=== PATIENT | female | born 1990 | race African-American/Black ===

== ENCOUNTER 2016-07-16 09:11 | Emergency (ER) | payer OTHER ==
[~2016-07-16] VITALS: Ht 170.2 cm; Wt 63.5 kg
[2016-07-16] MEDS ORDERED: NACL 0.9% 1,000 ML IV SCH (09:13)
[2016-07-16] MEDS ORDERED: ONDANSETRON 4 MG/2 ML VIAL IVP ONE (09:15)
[2016-07-16 09:18] VITALS: BP 143/98
--- NOTE | 2016-07-16 09:22 | NUR ---
Patient ambulated to bed 7. RN evaluating patient at bedside.
--- NOTE | 2016-07-16 09:30 | NUR ---
PT PRESENTS TO ER W/C/O SORE THROAT AND INTERMITTENT BOUTS OF DIZZINESS X 1 DAY. HX SLE, RA; DENIES N/V/D; SKIN IS PINK/WARM/DRY; AAOX4 WITH EVEN AND STEADY GAIT; LUNGS CLEAR BL; HR EVEN AND REGULAR; PT DENIES ANY FEVER, CP, SOB, OR COUGH AT THIS TIME; PATIENT STATES PAIN OF 10/10 AT THIS TIME; VSS; PATIENT POSITIONED FOR COMFORT; HOB ELEVATED; BEDRAILS UP X2; BED DOWN. ER MD MADE AWARE OF PT STATUS.
--- NOTE | 2016-07-16 10:15 | NUR ---
Dr. Drake re-evaluating patient at bedside.
[2016-07-16] MEDS ORDERED: MORPHINE SULFATE 4 MG/ML SYR IVP ONE ×2 (10:40→12:35)
[2016-07-16] MEDS ORDERED: cefTRIAXone 1,000 MG VIAL ONE (11:08)
[2016-07-16 13:00] VITALS: BP 118/74
--- NOTE | 2016-07-16 13:00 | NUR ---
Patient discharged with v/s stable. Written and verbal after care instructions given and explained. Patient alert, oriented and verbalized understanding of instructions. Ambulatory with steady gait. All questions addressed prior to discharge. ID band removed. Patient advised to follow up with PMD. Rx of TYLENOL, KEFLEX given. Patient educated on indication of medication including possible reaction and side effects. Opportunity to ask questions provided and answered.
[2016-12-09] MEDS ORDERED: ZOFRAN8 MG PO (01:05)
[2016-12-09] MEDS ORDERED: FLAGYL250 MG PO (01:05)
[2016-12-09] MEDS ORDERED: CIPRO500 M1 PO (01:06)
[2016-12-10] MEDS ORDERED: PREDNISONE10 MG PO (10:37)
== END 2016-07-16 09:12 | disposition home or self-care (01) ==
LOC: MED 09:11
DX: B34.9 Viral infection, unspecified (principal); N39.0 Urinary tract infection, site not specified; R03.0 Elevated blood-pressure reading, without diagnosis of hypertension; M32.9 Systemic lupus erythematosus, unspecified; M06.9 Rheumatoid arthritis, unspecified
CPT/HCPCS: 36415; 80053; 81001; 81025; 82150; 85025; 87040; 87086; 87186; 87804; 96361; 96365; 96375; 96376; 99284; J0696; J2270; J2405; J7030; J7060

== ENCOUNTER 2016-08-12 07:15 | Emergency (ER) | payer OTHER ==
[~2016-08-12] VITALS: Ht 170.2 cm; Wt 63.5 kg
--- NOTE | 2016-08-12 07:18 | NUR ---
Patient biba from home and placed in bed 8 by EMS.
[2016-08-12 07:24] VITALS: BP 113/68
--- NOTE | 2016-08-12 07:30 | NUR ---
26/F biba from home for evaluation of chest pain. Pt states she was seen at [facility] last night for same symptoms and states "They said there was nothing wrong but I'm still having this pain." Patient states "I went home to try and rest and I couldn't. I kept pacing." Pt c/o 10 pain, to sternum, non radiating, constant, heaviness. Pt states the pain worsenes with lying flat. Patient is AOX4, VSS.
--- NOTE | 2016-08-12 07:53 | NUR ---
Vince herrera in [facility] - 08/12/16 at 0758 by [facility] Patient being evaluated by physician at bedside.
--- NOTE | 2016-08-12 08:05 | NUR ---
Patient being evaluated by physician at bedside.
[2016-08-12] MEDS ORDERED: methylPREDNISolone SS 125 MG in WATER STERILE 2 ML IV ONE (08:10)
[2016-08-12] MEDS ORDERED: NACL 0.9% 1,000 ML IV ONE (08:15)
[2016-08-12] MEDS ORDERED: ACETAMINOPHEN EXTRA STRENGTH 500 MG TAB PO ONE (08:50)
--- NOTE | 2016-08-12 08:53 | NUR ---
Pt requesting pain medication. Dr. Alberto made aware.
--- NOTE | 2016-08-12 09:02 | NUR ---
Patient refused the Tylenol. Pt states "I need something stronger." Dr. Alberto made aware.
--- NOTE | 2016-08-12 09:03 | NUR ---
Patient provided with a warm blanket and lights dimmed for comfort. VSS. Pt is calm and relaxed at this time.
--- NOTE | 2016-08-12 09:30 | NUR ---
Patient appears to be resting comfortably in bed. Vital Signs within normal limits. Respirations even and unlabored. No new orders received at this time.
--- NOTE | 2016-08-12 09:57 | NUR ---
Patient continues to be calm and relaxed at this time. VSS.
--- NOTE | 2016-08-12 10:43 | NUR ---
Patient appears to be resting comfortably in bed. Vital Signs within normal limits. Respirations even and unlabored.
--- NOTE | 2016-08-12 11:24 | NUR ---
IV removed, catheter intact and site benign. Applied folded 4x4 gauze and tape to stop bleeding.
--- NOTE | 2016-08-12 11:30 | NUR ---
PT THANKFUL FOR THE ATTENTION AND HELP. STATED SHE WAS ABLE TO SLEEP COMFORTABLY WITHOUT PAIN, WHICH SHE HASN'T BEEN ABLE TO IN 5 DAYS DUE TO CP. DC HOME INSTRUCTIONS INITIATED, PT WILL F/U WITH HER [facility] DOC
[2016-08-12 11:32] VITALS: BP 116/78
--- NOTE | 2016-08-12 11:32 | NUR ---
Patient discharged with v/s stable. Written and verbal after care instructions given and explained. Patient alert, oriented and verbalized understanding of instructions. Ambulatory with steady gait. All questions addressed prior to discharge. ID band removed. Patient advised to follow up with PMD. Rx of MEDROL DOSEPAK given. Patient educated on indication of medication including possible reaction and side effects. Opportunity to ask questions provided and answered.
== END 2016-08-12 11:32 | disposition home or self-care (01) ==
LOC: MED 07:15
PROC: 4A02X4Z Measurement of Cardiac Electrical Activity, External Approach (ICD-10-PCS; principal; 2016-08-12)
PROC: 3E033GC Introduction of Other Therapeutic Substance into Peripheral Vein, Percutaneous Approach (ICD-10-PCS; 2016-08-12)
DX: R07.9 Chest pain, unspecified (principal); B34.9 Viral infection, unspecified
CPT/HCPCS: 36415; 87804; 93005; 96361; 96374; 99285; J2930; J7030

== ENCOUNTER 2016-08-25 11:50 | Emergency (ER) | payer OTHER ==
[~2016-08-25] VITALS: Ht 170.2 cm; Wt 62.6 kg
[2016-08-25 11:53] VITALS: BP 129/89
--- NOTE | 2016-08-25 12:45 | NUR ---
PT BIBA TO BED 3 AT THIS TIME.
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
--- NOTE | 2016-08-25 12:46 | NUR ---
Pt arrived in C-spine precautions with hard C-collar place. ED Physician notified.
--- NOTE | 2016-08-25 12:50 | NUR ---
Patient being evaluated by physician at bedside.
--- NOTE | 2016-08-25 12:51 | NUR ---
C-spine cleared by Collar and backboard removed. Moves all extremities before and after backboard removal.
[2016-08-25] MEDS ORDERED: KETOROLAC 60 MG/2 ML VIAL IM ONE (12:55)
[2016-08-25] MEDS ORDERED: CARISOPRODOL 350 MG TAB PO ONE (12:55)
--- NOTE | 2016-08-25 13:10 | NUR ---
PT TAKEN VIA WHEELCHAIR BY X-RAY PRESSURE TESTING TECHNICIAN.
--- NOTE | 2016-08-25 13:29 | NUR ---
PT RETURNED FROM X-RAY VIA WHEELCHAIR.
--- NOTE | 2016-08-25 13:30 | NUR ---
PATIENT RESTING; VSS; PATIENT POSITIONED FOR COMFORT; HOB ELEVATED; BEDRAILS UP X2; BED DOWN. ER MD MADE AWARE OF PT STATUS.
--- NOTE | 2016-08-25 14:11 | NUR ---
Patient discharged with v/s stable. Written and verbal after care instructions given and explained. Patient alert, oriented and verbalized understanding of instructions. Ambulatory with steady gait. All questions addressed prior to discharge. ID band removed. Patient advised to follow up with PMD. Rx of SOMA 350MG AND MOTRIN 600MG TABLET given. Patient educated on indication of medication including possible reaction and side effects. Opportunity to ask questions provided and answered.
[2016-08-25 14:12] VITALS: BP 121/72
== END 2016-08-25 14:11 | disposition home or self-care (01) ==
LOC: MED 11:50
DX: S16.1XXA Strain of muscle, fascia and tendon at neck level, initial encounter (principal); S29.011A Strain of muscle and tendon of front wall of thorax, initial encounter; M32.9 Systemic lupus erythematosus, unspecified; V89.2XXA Person injured in unspecified motor-vehicle accident, traffic, initial encounter; Y93.89 Activity, other specified; Y92.89 Other specified places as the place of occurrence of the external cause; Y99.8 Other external cause status; M06.9 Rheumatoid arthritis, unspecified
CPT/HCPCS: 71010; 72040; 96372; 99284; J1885

== ENCOUNTER 2016-10-24 08:47 | Emergency (ER) | payer OTHER ==
[~2016-10-24] VITALS: Ht 175.3 cm; Wt 61.2 kg
[2016-10-24 09:01] VITALS: BP 120/73
--- NOTE | 2016-10-24 09:15 | NUR ---
PT AMBULATED TO ER BED 4.
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
--- NOTE | 2016-10-24 09:42 | NUR ---
Patient being evaluated by physician at bedside.
[2016-10-24] MEDS ORDERED: methylPREDNISolone SS 125 MG in WATER STERILE 2 ML IM ONE (10:05)
[2016-10-24] MEDS ORDERED: HYDROmorphone 1 MG/ML AMP IM ONE (10:05)
--- NOTE | 2016-10-24 10:05 | NUR ---
PT DECLINES BLOOD DRAW. ERMD NOTIFIED OF PATIENT STATUS.
--- NOTE | 2016-10-24 10:31 | NUR ---
Patient discharged with v/s stable. Written and verbal after care instructions given and explained by Dr. Drake. Patient alert, oriented and verbalized understanding of instructions. Ambulatory with steady gait. All questions addressed prior to discharge. ID band removed. Patient advised to follow up with PMD. Rx of PREDNISONE 20MG AND TYLENOL WITH CODIENE #3 given. Patient educated on indication of medication including possible reaction and side effects. Opportunity to ask questions provided and answered.
[2016-10-24 10:32] VITALS: BP 118/72
[2016-12-09] MEDS ORDERED: FLAGYL250 MG PO (01:05)
[2016-12-09] MEDS ORDERED: ZOFRAN8 MG PO (01:05)
[2016-12-09] MEDS ORDERED: CIPRO500 M1 PO (01:06)
[2016-12-10] MEDS ORDERED: PREDNISONE10 MG PO (10:37)
== END 2016-10-24 10:31 | disposition home or self-care (01) ==
LOC: MED 08:47
DX: M32.19 Other organ or system involvement in systemic lupus erythematosus (principal); M79.641 Pain in right hand; M79.642 Pain in left hand; R22.33 Localized swelling, mass and lump, upper limb, bilateral
CPT/HCPCS: 96372; 99284; J1170; J2930

== ENCOUNTER 2016-12-03 12:09 | Emergency (ER) | payer OTHER ==
[~2016-12-03] VITALS: Ht 172.7 cm; Wt 56.4 kg
[2016-12-03 12:50] VITALS: BP 136/84
[2016-12-03] MEDS ORDERED: ACETAMINOPHEN EXTRA STRENGTH 500 MG TAB ONE (13:02)
[2016-12-03] MEDS ORDERED: IBUPROFEN 600 MG TAB ONE (13:04)
[2016-12-03] MEDS ORDERED: NACL 0.9% 1,000 ML IV SCH (13:31)
--- NOTE | 2016-12-03 16:00 | NUR ---
NO ANSWER IN ER LOBBY
--- NOTE | 2016-12-03 17:00 | NUR ---
NO ANSWER IN ER LOBBY
--- NOTE | 2016-12-03 17:37 | NUR ---
NO ANSWER IN ER LOBBY
== END 2016-12-03 16:00 | disposition left against medical advice (07) ==
LOC: MED 12:09
DX: M32.9 Systemic lupus erythematosus, unspecified (principal)
CPT/HCPCS: 99281; 99283

== ENCOUNTER 2016-12-08 12:56 | Inpatient (IN) | payer OTHER ==
[~2016-12-08] VITALS: Ht 172.7 cm; Wt 57.6 kg
[2016-12-08 12:56] VITALS: BP 133/86
--- NOTE | 2016-12-08 12:56 | NUR ---
Patient was BIBA at this time.
[2016-12-08] MEDS ORDERED: HYDROmorphone 1 MG/ML AMP IVP ONE ×2 (13:50→16:55)
[2016-12-08] MEDS ORDERED: ONDANSETRON 4 MG/2 ML VIAL IVP ONE (13:50)
[2016-12-08] MEDS ORDERED: NACL 0.9% 1,000 ML IV ONE ×3 (13:50→16:55)
[2016-12-08 14:13] LABS: BASOPHILS # (AUTO) 0.1 K/uL (0.00-0.22); BASOPHILS % (AUTO) 1.4 % (0.0-2.0); EOSINOPHILS # (AUTO) 0.1 K/uL (0-0.4); EOSINOPHILS % (AUTO) 1.6 % (0.0-4.0); HEMATOCRIT 32.5 % (36-48); HEMOGLOBIN 10.2 g/dL (12.0-16.0); LYMPHOCYTES # (AUTO) 0.5 K/uL (2.5-16.5); LYMPHOCYTES % (AUTO) 6.2 % (20.5-51.1); MEAN CORPUSCULAR HEMOGLOBIN 22 pg (27-31); MEAN CORPUSCULAR HGB CONC 31 g/dL (33-37); MEAN CORPUSCULAR VOLUME 69 fL (80-94); MONOCYTES # (AUTO) 0.2 K/uL (0.8-1.0); MONOCYTES % (AUTO) 2.4 % (1.7-9.3); NEUTROPHILS # (AUTO) 6.7 K/uL (1.8-7.7); NEUTROPHILS % (AUTO) 88.4 % (42.2-75.2); PLATELET COUNT (AUTO) 359 K/uL (140-450); RED BLOOD CELL COUNT(AUTO) 4.71 MIL/uL (4.20-5.40); RED CELL DISTRIBUTION WIDTH 17.4 % (11.6-13.7); WHITE BLOOD COUNT (AUTO) 7.6 K/uL (4.8-10.8)
--- NOTE | 2016-12-08 14:17 | NUR ---
bed 04
--- NOTE | 2016-12-08 14:17 | NUR ---
Patient taken to bed 03 via gurney per EMS.
--- NOTE | 2016-12-08 14:18 | NUR ---
26F BIBA FROM HOME C/O ALTERED MENTAL STATUS X TODAY; PT AWAKE, ALERT ON ARRIVAL, BUT ANSWERING QUESTIONS UNAPPROPRIATELY AT THIS TIME; PT STATES " I WANT MY MOMMY" WHEN ASKED QUESTIONS. HX: LUPUS PER [facility]. SKIN IS PINK/WARM/DRY;PT AMB UNSTEADY GAIT WITH ASSISTANCE; LUNGS CLEAR BL; HR EVEN AND REGULAR; PT'S DENIES PT HAS ANY FEVER, CP, SOB, OR COUGH AT THIS TIME;PER ; PT HAS DX BACTERIAL DIAEEHEA & GOT MEDS ; ONDANSETRON ODT, METRONIDASONE &CIPRO X 2 DAYS AGO FROM [facility] BUT DOESN'T HELP. PATIENT POSITIONED FOR COMFORT; HOB ELEVATED; BEDRAILS UP X2; BED DOWN. ER MD MADE AWARE OF PT STATUS.
[2016-12-08 14:21] LABS: ANION GAP 18.6 (8-16); CALCIUM 8.7 mg/dL (8.5-10.1); CARBON DIOXIDE 23.7 mmol/L (21-32); CHLORIDE 104 mmol/L (98-107); CREATININE 0.8 mg/dL (0.6-1.3); GFR ARICAN-AMERICAN 110 mL/min (>90); GFR NON ARICAN-AMERICAN 91 mL/min (>90); GLUCOSE 115 mg/dL (74-106); POTASSIUM 3.3 mmol/L (3.5-5.1); SODIUM SERUM 143 mmol/L (136-145); UREA NITROGEN, BLOOD 13 mg/dL (7-18)
[2016-12-08 14:27] LABS: ALANINE AMINOTRANSFERASE 32 U/L (14-59); ALBUMIN 2.7 g/dL (3.4-5.0); ALKALINE PHOSPHATASE 53 U/L (46-116); ASPARTATE AMINOTRANSFERASE 39 U/L (15-37); TOTAL BILIRUBIN 0.5 mg/dL (0.0-1.0); TOTAL PROTEIN, SERUM 7.8 g/dL (6.4-8.2)
[2016-12-08 14:33] LABS: SALICYLATE < 2.8 mg/dL (2.8-20.0)
[2016-12-08 14:34] LABS: ALCOHOL, BLOOD < 3 mg/dL (<3)
[2016-12-08 14:36] LABS: LACTIC ACID 2.6 mmol/L (0.4-2.0)
--- NOTE | 2016-12-08 14:49 | NUR ---
AT BEDSIDE. Addendum: 12/08/16 at 1451 by MED1 Patient appears to be SLEEPING comfortably in bed. Vital Signs within normal limits. Respirations even and unlabored.WILL CONTINUE TO MONITOR.
--- NOTE | 2016-12-08 15:40 | NUR ---
PER DR OROZCO TO STRAIT CATH; NO URINE ' PT'S STS PT HAVEN'T DRINK WATER FOR 2 DAYS. NOTIFIED GISSELL GARCIA. Addendum: 12/08/16 at 1611 by [facility] WAIT 10 MINS ; GOT URINE FROM CATH ; SENT URINE SPECIMEN TO LAB.
--- NOTE | 2016-12-08 15:55 | NUR ---
K 3.3, LACTIC ACID 2.6. NOTIFIED ER MD DR RAGSDALE.
--- NOTE | 2016-12-08 16:09 | NUR ---
0.9% NS 1,000 ML BOLUS ORDERED PER ER MD DR. RAGSDALE VERBAL ORDER.
--- NOTE | 2016-12-08 16:12 | NUR ---
Patient appears to be SLEEPING comfortably in bed. BP 150/89 ,66, PULSE OX 100 %, Respirations even and unlabored.
[2016-12-08 16:28] LABS: BLOOD, URINE NEGATIVE (NEGATIVE); COLOR,URINE YELLOW (YELLOW); LEUKOCYTE ESTERASE ,URINE NEGATIVE (NEGATIVE); NITRITE, URINE NEGATIVE (NEGATIVE); PH,URINE 6.5 (5.0-9.0); PROTEIN,URINE NEGATIVE (NEGATIVE); UGLUCOSE NEGATIVE (NEGATIVE); UROBILINOGEN,URINE 0.2 EU/dL (0.2 - 1)
[2016-12-08 16:32] LABS: APPEARANCE,URINE HAZY (CLEAR); BILIRUBIN,URINE NEGATIVE (NEGATIVE)
[2016-12-08 16:37] LABS: BACTERIA,URINE FEW /HPF (None Seen); MUCUS,URINE 2+ /LPF (None Seen); RBC,URINE 0-3 /HPF (0-5); WBC,URINE 0-3 /HPF (0-5)
[2016-12-08 16:38] LABS: URINE AMORPHOUS URATE 2+ /HPF (None Seen)
[2016-12-08 16:41] LABS: AMPHETAMINE, URINE NEG. ng/ml (NEG <=1000); BARBITURATE, URINE NEG. ng/ml (NEG <=200); BENZODIAZEPINE, URINE NEG. ng/mL (NEG <=200); CANNABINOID, URINE POS. ng/mL (NEG <=50); COCAINE, URINE NEG. ng/mL (NEG <=300); OPIATE, URINE NEG. ng/mL (NEG <=2000); PHENCYCLIDINE SCREEN,URINE NEG. ng/mL (NEG <=25)
--- NOTE | 2016-12-08 16:47 | NUR ---
GISSELL RAGSDALE EVALUATING PT AT BEDSIDE. Addendum: 12/08/16 at 1706 by [email or web address] PT APPEARS AGIATED.
--- NOTE | 2016-12-08 17:00 | NUR ---
ADMINISTERED IVF & MED ORDER.
--- NOTE | 2016-12-08 17:02 | NUR ---
LAB at bedside.
--- NOTE | 2016-12-08 17:04 | NUR ---
Vince herrera in [facility] - 12/08/16 at 1705 by [email or web address] LAB AT BEDSIDE
[2016-12-08] MEDS ORDERED: HALOPERIDOL IM 5 MG/ML VIAL IVP ONE (17:05)
--- NOTE | 2016-12-08 17:10 | NUR ---
LACTIC ACID 3.2 H; NOTIFIED ER MD DR RAGSDALE.
--- NOTE | 2016-12-08 17:11 | NUR ---
PT APPEARS AGIATATED. GAVE HALDOL 5MG IV ORDER.
--- NOTE | 2016-12-08 17:35 | NUR ---
Patient appears to be sleeping comfortably in bed. bp 135/107,pulse ox 100&%; aware. Respirations even and unlabored.WILL CONTINUE TO MONITOR. Addendum: 12/08/16 at 1808 by [email or web address] T100.4, NOTIFIED ER MD DR RAGSDALE. GAVE TYLENOL 650 MG SUPPO ODER
[2016-12-08] MEDS ORDERED: ACETAMINOPHEN 650 MG SUPP RC ONE ×2 (17:50→17:55)
[2016-12-08] MEDS ORDERED: MEROPENEM 1,000 MG in NACL 0.9% 100 ML IV ONE (17:50)
[2016-12-08] MEDS ORDERED: MEROPENEM 1,000 MG VIAL IV ONE (18:01)
--- NOTE | 2016-12-08 18:06 | NUR ---
Patient appears to be SLEEPING comfortably in bed. T 99.9,P60,PULSE OX100,BP131,89. MD AWARE. Respirations even and unlabored.WILL CONTINUE TO MONITOR.
--- NOTE | 2016-12-08 18:20 | NUR ---
ER MD DR RAGSDALE REEVALUATING PT AT BEDSIDE.
--- NOTE | 2016-12-08 18:54 | NUR ---
IVF FINISHED,T101, PT AQPPEARS AGIATED, SCREEMING " LEAVE ME ALONE". AT BEDSIDE.T 101.6, P60,R 20 BP144/70. PULSE OX 99. NOTIFIED ER MD DR RAGSDALE.
--- NOTE | 2016-12-08 19:10 | NUR ---
Vince herrera in ED - 12/08/16 at 1915 by [email or web address] PT TAKEN TO CT VIA NED ACCOMPANIED BY TRAILHEAD CONSTRUCTION WORKER.
--- NOTE | 2016-12-08 19:12 | NUR ---
Patient taken to CT via robert holman.
--- NOTE | 2016-12-08 19:14 | NUR ---
GAVE REPORT TO AMINAH WANG. Addendum: 12/08/16 at 1915 by [email or web address] Pt report given to AMINAH WANG . Transfer of care at this time.
--- NOTE | 2016-12-08 19:35 | NUR ---
PT BACK FROM CT TEMP TAKEN 100.8/TA PT EYES CLOSE REFUSED TO BE CHECKED AND YELLING WHEN TOUCH, BOYFRIEND AT BEDSIDE, WET WASH CLOTH APPLIED ON FOREHEAD, NOTED DRYNESS ON LIPS AND DRY RASH ON LEFT UPPER ARM, SKIN WARM TO TOUCH RESP. EVEN AND UNLABORED, VITAL SIGN OBTAINED,
[2016-12-08] MEDS ORDERED: LORazepam 2 MG/ML VIAL IVP ONE (20:40)
--- NOTE | 2016-12-08 20:51 | NUR ---
PT VERY CONFUSED TRYING TO GET UP SCREAMING, PUT BACK TO BED, WET WASH CLOT APPLIED, AND INFORMED DR. TAYLOR LATEST TEMP.
[2016-12-08] MEDS ORDERED: KETOROLAC 30 MG/ML VIAL IVP ONE (20:55)
--- NOTE | 2016-12-08 21:13 | NUR ---
PT SLEEPING AT THIS TIME, BOYFRIEND AT BEDSIDE, VITAL SIGN STABLE
--- NOTE | 2016-12-08 21:20 | NUR ---
DR. TAYLOR AT BEDSIDE
--- NOTE | 2016-12-08 21:51 | NUR ---
PT EYES CLOSE, PT SLEEPING, NO SOB NOTED, VITAL SIGN STABLE,WET WASH CLOTH ON FOREHEAD
--- NOTE | 2016-12-08 22:31 | NUR ---
PT STILL SLEEPING WHEN TRY TO WAKE UP PT , PT MOVED HER SHOULDER,VITAL SIGN STABLE
--- NOTE | 2016-12-08 23:00 | NUR ---
PT STILL SLEEPING ABLE TO TURN FROM SIDE TO SIDE
--- NOTE | 2016-12-08 23:08 | NUR ---
TRIED TO PUT WET WASH CLOTH ON FOREHEAD, TEMP 101.5/TEMPORAL,PT GET MAD AND SAID LEAVE ME ALONE AND THROW THE WASH CLOTH ON THE FLOOR
--- NOTE | 2016-12-09 00:06 | NUR ---
PT STILL SLEEPING ABLE TO TURN FROM SIDE TO SIDE
--- NOTE | 2016-12-09 00:09 | NUR ---
INFORMED MD PT NO URINE OUTPUT AT THIS TIME, ABDOMEN SOFT NON DISTENDED
[2016-12-09] MEDS: NACL 0.9% 1,000 ML IV SCH ×3 (00:22→21:59)
[2016-12-09] MEDS ORDERED: MORPHINE SULFATE 2 MG/ML SYR IVP PRN (00:25)
[2016-12-09] MEDS ORDERED: LORazepam 0.5 MG TAB PO PRN ×2 (00:25→04:25)
[2016-12-09] MEDS ORDERED: DOCUSATE SODIUM 100 MG GELCAP PO PRN (00:25)
[2016-12-09] MEDS ORDERED: ONDANSETRON 4 MG/2 ML VIAL IM/IVP PRN (00:25)
[2016-12-09] MEDS ORDERED: ACETAMINOPHEN 325 MG TAB PO PRN (00:25)
--- NOTE | 2016-12-09 00:34 | NUR ---
PT AWAKE,BOYFRIEND AT BEDSIDE, GLASS OF WATER GIVEN
--- NOTE | 2016-12-09 00:43 | NUR ---
TRY TO CHECK PUPIL, PT REFUSED TO BE CHECK,BOYFRIEND AT BEDSIDE
--- NOTE | 2016-12-09 00:54 | NUR ---
LAB AT BEDSIDE
[2016-12-09] MEDS ORDERED: METR250T2 PO (01:05)
[2016-12-09] MEDS ORDERED: ONDA8TAB PO (01:05)
[2016-12-09] MEDS ORDERED: CIPR500T4 PO (01:06)
--- NOTE | 2016-12-09 01:06 | NUR ---
Pt report given to SCOOBY. Transfer of care at this time. Addendum: 12/09/16 at 0434 by [email or web address] Patient will be admitted to care of DR. SNEED. Admited to TELE. Will go to room 124B. Belongings list completed. Report to SCOOBY
--- NOTE | 2016-12-09 01:18 | NUR ---
TRANFER TO TELE PT EYES CLOSE, SLEEPY, REFUSED TO ANSWER QUESTION CLAIMED I DONT FEEL GOOD, WET WASH CLOTH ON FOREHEAD, THIS TIME PT DIDNT REMOVE WASH CLOTH.
[2016-12-09 01:24] LABS: INR 1.3 (0.8-1.2); PARTIAL THROMBOPLASTIN TIME 30.2 secs (22-35.6); PROTHROMBIN TIME 13.1 secs (10.8-13.4)
[2016-12-09 01:30] VITALS: BP 125/74
[2016-12-09 01:30] LABS: CHOL/HDL RATIO 6.6 (1-4.5); FREE T4 (FREE THYROXINE) 1.2 ng/dL (0.76-1.46); MAGNESIUM 1.7 mg/dL (1.8-2.4); PHOSPHORUS 3.5 mg/dL (2.5-4.9); THYROID STIMULATING HORMONE 1.64 uIU/mL (0.34-3.74)
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
--- NOTE | 2016-12-09 02:20 | NUR ---
PATIENT REFUSED IV FLUIDS, IS AWARE.
[2016-12-09] MEDS ORDERED: HALOPERIDOL IM 5 MG/ML VIAL IM ONE (04:00)
--- NOTE | 2016-12-09 04:10 | NUR ---
PATIENT ASLEEP IN BED, BOYFRIEND IS AT BEDSIDE. PATIENT REFUSED VITAL SIGNS. NO S/S OF ACUTE DISTRESS NOTED, CALL LIGHT WITHIN REACH, SAFETY MEASURE ENSURED, WILL CONTINUE TO MONITOR.
[2016-12-09] MEDS ORDERED: HALOPERIDOL IM 5 MG/ML VIAL IM PRN (04:25)
[2016-12-09] MEDS ORDERED: APAP/BUTAL/CAFF 325/50/40 MG 1 TAB PO PRN (04:30)
[2016-12-09] MEDS ORDERED: KETOROLAC 30 MG/ML VIAL IVP PRN (04:30)
--- NOTE | 2016-12-09 05:03 | NUR ---
PATIENT REQUESTED WATER. AFTER DRANK 2 CUPS OF WATER, PATIENT THREW UP. PATIENT IS RESTING IN BED, WILL CONTINUE TO MONITOR.
--- NOTE | 2016-12-09 06:30 | NUR ---
PATIENT WAS FOUND IN OTHER PATIENT'S ROOM AND URINATED ON HERSELF. ASSISTED PATIENT BACK TO HER ROOM. PATIENT IS RESTING IN BED NOW, BOYFRIEND IS AT BEDSIDE. SAFETY MEASURE ENSURED, WILL CONTINUE TO MONITOR.
--- NOTE | 2016-12-09 06:45 | NUR ---
TALKED WITH PATIENT'S MOTHER SOLOMON BEASLEY OVER THE PHONE, AND PATIENT'S MOTHER STATED SHE WOULD COME TO THE HOSPITAL TO SIGN ALL THE PAPER WORKS AROUND 8AM. WILL ENDORSE PLAN OF CARE TO DAY RN.
--- NOTE | 2016-12-09 07:15 | NUR ---
ENDORSED PLAN OF CARE TO DAY RN. PATIENT IS RESTING IN BED AND IN STABLE CONDITION.
--- NOTE | 2016-12-09 07:16 | NUR ---
RECEIVED REPORT FROM THE SMALL BATTERY PLATE ASSEMBLER NURSE AT BEDSIDE. PT SLEEPING. BOYFRIEND IS SLEEPING IN THE CHAIR. PER SMALL BATTERY PLATE ASSEMBLER NURSE, SHE HAS BEEN COMBATIVE AND AGITATED SINCE ARRIVAL. I WILL BE BACK AND ASSESS PT.
--- NOTE | 2016-12-09 07:55 | NUR ---
GOT HER A BLANKET. SHE WAS SHIVERING. PT ALLOWED ME TO DO V/S. SHE HAS A FEVER. WILL GET HER SOME TYLENOL WITH MORNING MEDS. REFUSED AN ORAL THERMOMETER. SKIN INTACT. L AC 20G SL. BOYFRIEND WILL BE WILLING TO ASSIST IN HER COMPLIANCE. WILL CONTINUE TO MONITOR PT.
[2016-12-09 08:00] VITALS: BP 117/75
--- NOTE | 2016-12-09 08:10 | NUR ---
SHE IS OFF THE TELE MONITOR. PT REFUSED TO BE PUT BACK ON THE MONITOR. NOTIFIED ALIZE AND .
[2016-12-09] MEDS ORDERED: CIPROFLOXACIN HCL 500 MG PO SCH (09:00)
[2016-12-09] MEDS ORDERED: MAGNESIUM OXIDE 400 MG TAB PO ONE (09:00)
[2016-12-09] MEDS ORDERED: metroNIDAZOLE 250 MG TAB PO SCH (09:00)
[2016-12-09] MEDS ORDERED: CIPROFLOXACIN 250 MG TAB PO SCH ×2 (09:08→21:00)
--- NOTE | 2016-12-09 09:20 | NUR ---
PATIENT HAS BEEN SCREENED AND CATEGORIZED MODERATE NUTRITION RISK. PATIENT WILL BE SEEN WITHIN 3-5 DAYS OF ADMISSION. 12/11/16-12/13/[address]
[2016-12-09] MEDS ORDERED: KCL 20 MEQ/WATER INJ PREMIX 200 ML IV ONE (09:50)
[2016-12-09] MEDS ORDERED: methylPREDNISolone SS 125 MG/2 ML VIAL IVP SCH (09:54)
[2016-12-09] MEDS ORDERED: LEVOFLOXACIN 250 MG/D5 PREMIX 50 ML IV ONE (10:00)
[2016-12-09] MEDS: LEVOFLOXACIN 250 MG/D5 PREMIX 50 ML IV SCH (10:35)
--- NOTE | 2016-12-09 10:42 | NUR ---
U/S TECH HERE DOING THE ECHO. MOM IS HERE AND IS ASSISTING. PT IS COOPERATIVE. STARTED THE KRIDER, STOPPED IT, STARTED THE LEVAQUIN. WILL RESTART K RIDER ONCE LEVAQUIN IS DONE. WILL CONTINUE TO MONITOR PT.
[2016-12-09] MEDS ORDERED: COMMUNICATION ORDER MC PRN (11:15)
[2016-12-09] MEDS ORDERED: MAG SULF 2000 MG/WATER PREMIX 50 ML IV SCH (11:30)
--- NOTE | 2016-12-09 11:38 | NUR ---
FAXED INITIAL REVIEW TO [facility] [phone] PHONE SVEN [phone] [id number]
[2016-12-09 12:00] VITALS: BP 99/55
[2016-12-09] MEDS: metroNIDAZOLE 500 MG/NS PREMIX 100 ML IV SCH ×2 (13:21→20:32)
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
[2016-12-09] MEDS ORDERED: POTASSIUM CHLORIDE 20 MEQ, LIDOCAINE 1% 25 MG in NACL 0.9% 250 ML IV SCH (16:00)
[2016-12-09 16:24] LABS: ANION GAP 13.2 (8-16); CALCIUM 8.1 mg/dL (8.5-10.1); CREATININE 0.7 mg/dL (0.6-1.3); POTASSIUM 3.2 mmol/L (3.5-5.1)
[2016-12-09 16:31] VITALS: BP 109/68
--- NOTE | 2016-12-09 17:24 | NUR ---
PT IS SLEEPING SOUNDLY. NO SIGNS OF DISTRESS. MAG RIDER INFUSING. PT TOLERATING WELL. MOM WENT HOME. BOYFRIEND WENT TO THE CAR. WILL BE BACK. WILL CONTINUE TO MONITOR PT.
--- NOTE | 2016-12-09 19:12 | NUR ---
ENDORSED PT TO THE AVIATION PROGRAM MANAGER NURSE AT BEDSIDE FOR CONTINUITY OF CARE. PT SLEEPING. ADMINISTER THE LAST POTASSIUM. PT TOLERATING WELL. BOYFRIEND AT BEDSIDE. IN STABLE CONDITION.
--- NOTE | 2016-12-09 19:13 | NUR ---
RECEIVED REPORTS FROM DAY RN. PATIENT ASLEEP IN BED, BOYFRIEND AT BEDSIDE. NO S/S OF ACUTE DISTRESS NOTED, IV PATENT AND INTACT, POTASSIUM CHLORIDE INFUSING AT 65ML/HR. CALL LIGHT WITHIN REACH, SAFETY MEASURE ENSURED, WILL CONTINUE THE PLAN OF CARE.
[2016-12-09 20:00] VITALS: BP 128/71
--- NOTE | 2016-12-09 20:30 | NUR ---
PATIENT ASLEEP IN BED, BOYFRIEND AT BEDSIDE. NO S/S OF ACUTE DISTRESS NOTED, RESPIRATION EVEN AND UNLABORED. CALL LIGHT WITHIN REACH, SAFETY MEASURE ENSURED, WILL CONTINUE TO MONITOR.
[2016-12-09] MEDS: methylPREDNISolone SS 125 MG/2 ML VIAL IVP SCH (20:32)
--- NOTE | 2016-12-09 23:40 | NUR ---
PATIENT AWAKE, ALERT, ORIENTED X4. STATED," I FEEL MUCH BETTER." FAMILY MEMBERS AND FRIENDS AT BEDSIDE. ASSESSED PATIENT'S NEUROLOGICAL FUNCTIONS, PATIENT WAS COOPERATIVE AND ANSWERED QUESTIONS PROPERLY. CALL LIGHT WITHIN REACH, SAFETY MEASURE ENSURED, WILL CONTINUE TO MONITOR
[2016-12-10] VITALS: BP 120/78
--- NOTE | 2016-12-10 02:34 | NUR ---
ASSISTED PATIENT TO THE BATHROOM. NOTED PATIENT AMBULATED WITH STEADY GAIT. NO S/S OF ACUTE DISTRESS NOTED, SAFETY MEASURE ENSURED, WILL CONTINUE TO MONITOR.
[2016-12-10 04:00] VITALS: BP 111/74
--- NOTE | 2016-12-10 04:33 | NUR ---
PATIENT ASLEEP IN BED, NO S/S OF ACUTE DISTRESS NOTED, RESPIRATION EVEN AND UNLABORED, VITAL SIGNS TAKEN, WITHIN NORMAL RANGE. SAFETY MEASURE ENSURED, WILL CONTINUE TO MONITOR.
[2016-12-10] MEDS: metroNIDAZOLE 500 MG/NS PREMIX 100 ML IV SCH ×3 (05:03→20:10)
[2016-12-10] MEDS: HYDROcodone/APAP 7.5/325 MG 1 TAB PO PRN ×3 (05:12→23:21)
--- NOTE | 2016-12-10 06:00 | NUR ---
UNABLE TO COLLECT THE C-DIFF, PATIENT DID NOT HAVE ANY BM DURING THE SHIFT. WILL ENDORSE TO NEXT SHIFT.
--- NOTE | 2016-12-10 06:36 | NUR ---
PATIENT ASLEEP IN BED, BOYFRIEND AT BEDSIDE. NO S/S OF ACUTE DISTRESS NOTED, RESPIRATION EVEN AND UNLABORED, SAFETY MEASURE ENSURED, WILL CONTINUE TO MONITOR.
[2016-12-10 07:09] LABS: ANION GAP 10.2 (8-16); CALCIUM 8.1 mg/dL (8.5-10.1); CARBON DIOXIDE 27.2 mmol/L (21-32); CREATININE 0.6 mg/dL (0.6-1.3); POTASSIUM 3.4 mmol/L (3.5-5.1)
--- NOTE | 2016-12-10 07:35 | NUR ---
ENDORSED PLAN OF CARE TO DAY RN. PATIENT IS IN STABLE CONDITION
--- NOTE | 2016-12-10 07:36 | NUR ---
RECEIVED REPORT FROM THE PINKED EDGE SEWING MACHINE OPERATOR NURSE AT BEDSIDE FOR CONTINUITY OF CARE. PT IS AWAKE AND ORIENTED. BOYFRIEND AT BEDSIDE. PT EATING BREAKFAST. STATED THAT THE DRS SAID SHE CAN GO HOME TODAY. EXCITED. PT HAS NOT VOMITED OR HAD AN EPISODE OF DIARRHEA SINCE YESTERDAY. TOLERATING WELL TO CLEAR LIQ DIET. V/S WITHIN NORMAL. IV ON L AC 20G, NS AT 100ML. WILL CONTINUE TO MONITOR PT.
[2016-12-10] MEDS: NACL 0.9% 1,000 ML IV SCH ×2 (07:59→17:29)
[2016-12-10 08:00] VITALS: BP 128/81
[2016-12-10] MEDS: LEVOFLOXACIN 250 MG/D5 PREMIX 50 ML IV SCH (08:23)
[2016-12-10] MEDS: methylPREDNISolone SS 125 MG/2 ML VIAL IVP SCH ×2 (08:23→20:09)
--- NOTE | 2016-12-10 08:25 | NUR ---
ADMINISTERED MORNING MEDS. PT TOLERATED WELL. WONDERING WHEN SHE WILL BE DC'D. WAITING ON
[2016-12-10 09:48] LABS: T4 (THYROXINE) 5.8 ug/dL (4.5 - 12.0)
[2016-12-10] MEDS ORDERED: PRED10TA5 PO (10:37)
--- NOTE | 2016-12-10 10:51 | NUR ---
PT RESTING IN BED. BOYFRIEND AT BEDSIDE. ANXIOUS TO GET HOME. NO ORDERS OF DC YET. WAITING ON DR. NO COMPLAINTS AT THIS TIME. WILL CONTINUE TO MONITOR PT.
[2016-12-10 12:00] VITALS: BP 125/77
--- NOTE | 2016-12-10 12:13 | NUR ---
PT JUST FINISHED TAKING A SHOWER. PT IV GOT DISLODGED. REMOVED OLD IV AND WILL START A NEW ONE ONCE SHE IS DONE WITH LUNCH. REPLACED TELE MONITOR. CALLED DR. RENAE AND ASKED HIM TO INCREASE DIET. BROUGHT HER A SANDWICH FOR NOW. HAD BM TODAY, FORMED AND SOFT. NO MORE NAUSEA OR DIARRHEA. WILL CONTINUE TO MONITOR PT.
--- NOTE | 2016-12-10 15:34 | NUR ---
PT IV GOT DISCONNECTED ACCIDENTALLY AND WAS BLEEDING ONTO HER SHEETS. PT CALLED. RECONNECTED HER, CHANGED LINENS AND CLEANED PT UP. PT TOLERATED WELL. WILL CONTINUE TO MONITOR PT.
[2016-12-10 16:00] VITALS: BP 115/74
[2016-12-10] MEDS ORDERED: POTASSIUM CHLORIDE 20% 40 MEQ/15 ML UDC PO SCH (16:15)
--- NOTE | 2016-12-10 18:00 | NUR ---
PT EATING DINNER. BOYFRIEND AT BEDSIDE. NO COMPLAINTS AT THIS TIME. WILL CONTINUE TO MONITOR PT.
--- NOTE | 2016-12-10 19:25 | NUR ---
ENDORSED PT TO THE BIOLOGICAL INSPECTOR NURSE AT BEDSIDE FOR CONTINUITY OF CARE. PT IS IN STABLE CONDITION. BOYFRIEND AT BEDSIDE.
--- NOTE | 2016-12-10 19:30 | NUR ---
RECEIVED REPORTS FROM DAY RN. PATIENT RESTING IN BED AND WATCHING TV. PATIENT AWAKE ALERT, ORIENTED X4. NO S/S OF ACUTE DISTRESS NOTED. IV PATENT AND INTACT, INFUSING NORMAL SALINE AT 100ML/HR. PATIENT STATED SHE MADE BM TODAY, AND BM WAS FORMED. PLAN OF CARE DISCUSSED, VERBALIZED UNDERSTANDING, CALL LIGHT WITHIN REACH, SAFETY MEASURE ENSURED, WILL CONTINUE TO MONITOR.
--- NOTE | 2016-12-10 22:30 | NUR ---
PATIENT RESTING IN BED, FAMILY MEMBERS AT BEDSIDE. NO S/S OF ACUTE DISTRESS NOTED, CALL LIGHT WITHIN REACH, SAFETY MEASURE ENSURED, WILL CONTINUE TO MONITOR
[2016-12-11] VITALS: BP 119/81
--- NOTE | 2016-12-11 02:39 | NUR ---
ASSISTED PATIENT TO THE BATHROOM. PATIENT RESTING IN BED NOW, CALL LIGHT WITHIN REACH, SAFETY MEASURE ENSURED, WILL CONTINUE TO MONITOR.
--- NOTE | 2016-12-11 03:36 | NUR ---
PATIENT ASLEEP IN BED, NO S/S OF ACUTE DISTRESS NOTED, RESPIRATION EVEN AND UNLABORED, CALL LIGHT WITHIN REACH, SAFETY MEASURE ENSURED, WILL CONTINUE TO MONITOR
[2016-12-11] MEDS: NACL 0.9% 1,000 ML IV SCH ×2 (03:59→06:13)
[2016-12-11] MEDS: metroNIDAZOLE 500 MG/NS PREMIX 100 ML IV SCH (04:04)
--- NOTE | 2016-12-11 06:13 | NUR ---
CHANGED A NEW BAG OF NORMAL SALINE, IV INFUSING WELL. WILL CONTINUE TO MONITOR.
--- NOTE | 2016-12-11 07:10 | NUR ---
ENDORSED PLAN OF CARE TO DAY RN, PATIENT IS IN STABLE CONDITION.
--- NOTE | 2016-12-11 07:11 | NUR ---
RECEIVED REPORT AT BEDSIDE BY THE PRICER BAGGER NURSE FOR CONTINUITY OF CARE. PT IS AWAKE AND ALERT AND ORIENTED. UPDATED THE BOARD AND INTRODUCED MYSELF. SKIN INTACT. IV ON R HAND 22G NS AT 100ML. NO COMPLAINTS. WILL CONTINUE TO MONITOR PT. V/S WITHIN NORMAL RANGE. PT WOULD LIKE TO BE D/C THIS MORNING. WILL AWAIT 'S ORDERS.
[2016-12-11 07:59] VITALS: BP 143/87
[2016-12-11] MEDS: methylPREDNISolone SS 125 MG/2 ML VIAL IVP SCH (08:08)
[2016-12-11] MEDS: HYDROcodone/APAP 7.5/325 MG 1 TAB PO PRN (08:08)
[2016-12-11] MEDS: LEVOFLOXACIN 250 MG/D5 PREMIX 50 ML IV SCH (08:08)
--- NOTE | 2016-12-11 08:10 | NUR ---
ADMINISTERED IV ABX, STEROID, AND NORCO. PT HAS GENERALIZED PAIN 6/10.
--- NOTE | 2016-12-11 08:40 | NUR ---
WENT OVER THE D/C INSTRUCTIONS. ANSWERED ALL QUESTIONS. PT VERBALIZED UNDERSTANDING. SIGNED ALL THE APPROPRIATE PAPER WORK. REMOVED IV, CANNULA INTACT. NO BLEEDING NOTED. REMOVED ID BAND. NO CLOTHES. WILL CALL FOR A TRANSPORT GOWN. WILL WALK PT OUT WHEN READY.
--- NOTE | 2016-12-11 09:05 | NUR ---
WALKED PT OUT TO THE HOSPITAL LOBBY, OUT INTO THE PARKING AREA. BOYFRIEND AT HERSIDE W/ PERSONAL BELONGINGS. PT IS STABLE. DIDN'T HAVE CLOTHES SO SHE IS WEARING ONE OF THE HOSPITAL GOWNS. NOTIFIED HOUSE SUPER.
[2016-12-12 09:05] LABS: HEMOGLOBIN A1C 5.7 % (4.8-5.6)
== END 2016-12-11 09:05 | disposition home or self-care (01) | DRG 346 ==
LOC: MED 12:56 → MTU 12-09 00:36
PROVIDERS: ADMIT Student in an Organized Health Care Education/Training Program; ATTEND Student in an Organized Health Care Education/Training Program
DX: M32.9 Systemic lupus erythematosus, unspecified (principal); G92 Toxic encephalopathy; E43 Unspecified severe protein-calorie malnutrition; I42.9 Cardiomyopathy, unspecified; A04.9 Bacterial intestinal infection, unspecified; F30.2 Manic episode, severe with psychotic symptoms; E86.0 Dehydration; E83.42 Hypomagnesemia; M06.9 Rheumatoid arthritis, unspecified; F28 Other psychotic disorder not due to a substance or known physiological condition; F12.90 Cannabis use, unspecified, uncomplicated; R59.1 Generalized enlarged lymph nodes; R73.03 Prediabetes; E87.6 Hypokalemia; D50.9 Iron deficiency anemia, unspecified; Z68.1 Body mass index [BMI] 19.9 or less, adult; Z91.14 Patient's other noncompliance with medication regimen; Z88.0 Allergy status to penicillin
CPT/HCPCS: 36415; 70450; 80048; 80053; 80305; 81001; 81025; 82150; 83036; 83605; 83690; 83735; 83880; 84100; 84436; 84439; 84443; 84479; 84484; 85025; 85610; 85651; 85730; 87040; 87081; 93005; 96361; 96365; 96375; 96376; 99285; C1758; G0480; G0482; J1170; J1630; J1885; J1956; J2001; J2060; J2185; J2405; J2930; J3475; J3480; J3490; J7030

== ENCOUNTER 2017-01-18 07:44 | Inpatient (IN) | payer OTHER ==
[~2017-01-18] VITALS: Ht 170.2 cm; Wt 50.3 kg
[~2017-01-18 07:44] MED LIST: CIPR500T4 PO; METR250T2 PO; PRED10TA5 PO
[2017-01-18 07:48] VITALS: BP 109/76
[2017-01-18] MEDS ORDERED: NACL 0.9% 1,000 ML IV SCH (08:11)
[2017-01-18 08:37] LABS: BASOPHILS # (AUTO) 0.1 K/uL (0.00-0.22); BASOPHILS % (AUTO) 2.7 % (0.0-2.0); EOSINOPHILS % (AUTO) 0.1 % (0.0-4.0); HEMATOCRIT 31.4 % (36-48); LYMPHOCYTES # (AUTO) 0.4 K/uL (2.5-16.5); LYMPHOCYTES % (AUTO) 8.7 % (20.5-51.1); MEAN CORPUSCULAR HEMOGLOBIN 24 pg (27-31); MEAN CORPUSCULAR HGB CONC 32 g/dL (33-37); MEAN CORPUSCULAR VOLUME 74 fL (80-94); MONOCYTES # (AUTO) 0.1 K/uL (0.8-1.0); MONOCYTES % (AUTO) 2.3 % (1.7-9.3); NEUTROPHILS # (AUTO) 4.5 K/uL (1.8-7.7); NEUTROPHILS % (AUTO) 86.2 % (42.2-75.2); PLATELET COUNT (AUTO) 368 K/uL (140-450); RED BLOOD CELL COUNT(AUTO) 4.27 MIL/uL (4.20-5.40); RED CELL DISTRIBUTION WIDTH 20.1 % (11.6-13.7); WHITE BLOOD COUNT (AUTO) 5.1 K/uL (4.8-10.8)
[2017-01-18 08:39] LABS: APPEARANCE,URINE HAZY (CLEAR); BILIRUBIN,URINE 2+ (NEGATIVE); BLOOD, URINE 1+ (NEGATIVE); COLOR,URINE YELLOW (YELLOW); LEUKOCYTE ESTERASE ,URINE NEGATIVE (NEGATIVE); NITRITE, URINE NEGATIVE (NEGATIVE); UGLUCOSE NEGATIVE (NEGATIVE)
[2017-01-18 08:51] LABS: CARBON DIOXIDE 27.1 mmol/L (21-32); CREATININE 0.8 mg/dL (0.6-1.3); POTASSIUM 3.1 mmol/L (3.5-5.1)
[2017-01-18 08:57] LABS: TOTAL BILIRUBIN 0.7 mg/dL (0.0-1.0)
[2017-01-18 09:01] LABS: RBC,URINE 0-5 (RARE) /HPF (0-5)
[2017-01-18 09:02] LABS: CALCIUM OXALATE CRYSTALS,UR 0-10 /HPF (None Seen)
[2017-01-18] MEDS ORDERED: POTASSIUM CHL 30 MEQ/ D5-1/2NS 1,000 ML IV ONE (09:30)
[2017-01-18] MEDS ORDERED: methylPREDNISolone SS 125 MG/2 ML VIAL IVP ONE (09:55)
[2017-01-18] MEDS ORDERED: ONDANSETRON 4 MG/2 ML VIAL IVP PRN (10:10)
[2017-01-18] MEDS ORDERED: HYDROcodone/APAP 5/325 MG 1 TAB TAB PO PRN ×2 (10:10)
[2017-01-18 10:39] LABS: BARBITURATE, URINE NEG. ng/ml (NEG <=200); BENZODIAZEPINE, URINE NEG. ng/mL (NEG <=200); CANNABINOID, URINE POS. ng/mL (NEG <=50); COCAINE, URINE NEG. ng/mL (NEG <=300); OPIATE, URINE NEG. ng/mL (NEG <=2000); PHENCYCLIDINE SCREEN,URINE NEG. ng/mL (NEG <=25)
[2017-01-18 11:00] VITALS: BP 93/49
[2017-01-18] MEDS: NACL 0.9% 1,000 ML IV SCH ×2 (11:00→23:16)
[2017-01-18] MEDS ORDERED: ACETAMINOPHEN 325 MG TAB PO PRN (11:20)
[2017-01-18 12:00] VITALS: BP 95/50
[2017-01-18 16:00] VITALS: BP 97/69
[2017-01-18 20:00] VITALS: BP 107/73
[2017-01-19 00:10] VITALS: BP 101/67
[2017-01-19 03:45] VITALS: BP 118/77
[2017-01-19] MEDS: NACL 0.9% 1,000 ML IV SCH (07:00)
[2017-01-19 07:15] LABS: HEMOGLOBIN 9.2 g/dL (12.0-16.0); MEAN CORPUSCULAR HEMOGLOBIN 24 pg (27-31); MEAN CORPUSCULAR HGB CONC 32 g/dL (33-37); MEAN CORPUSCULAR VOLUME 75 fL (80-94); PLATELET COUNT (AUTO) 321 K/uL (140-450); RED BLOOD CELL COUNT(AUTO) 3.89 MIL/uL (4.20-5.40); RED CELL DISTRIBUTION WIDTH 20.7 % (11.6-13.7)
[2017-01-19 08:00] VITALS: BP 120/73
[2017-01-19 08:07] LABS: LYMPHOCYTES % (MANUAL) 13 % (20-46); MONOCYTES % (MANUAL) 6 % (5-12)
[2017-01-19 08:46] LABS: POTASSIUM 3.9 mmol/L (3.5-5.1)
[2017-01-19 08:49] LABS: ANION GAP 13.1 (8-16); CARBON DIOXIDE 25.8 mmol/L (21-32); CREATININE 0.5 mg/dL (0.6-1.3); TOTAL BILIRUBIN 0.4 mg/dL (0.0-1.0)
[2017-01-19 08:50] LABS: ALBUMIN 2.4 g/dL (3.4-5.0); MAGNESIUM 1.8 mg/dL (1.8-2.4)
[2017-01-19] MEDS ORDERED: METHYLPREDNISOLONE SS IV SCH (09:00)
[2017-01-19] MEDS ORDERED: methylPREDNISolone SS 125 MG/2 ML VIAL IVP SCH (09:00)
[2017-01-19] MEDS ORDERED: WATER STERILE IV SCH (09:00)
[2017-01-19] MEDS ORDERED: ENOXAPARIN 40 MG/0.4 ML SYR SUBQ SCH (09:00)
[2017-01-19] MEDS ORDERED: PRED20TA6 PO (09:44)
[2017-01-19 10:24] VITALS: BP 120/73
== END 2017-01-19 10:50 | disposition home or self-care (01) | DRG 346 ==
LOC: MED 07:44 → MTU 10:06
PROVIDERS: ADMIT Hospitalist; ATTEND Hospitalist
DX: M32.9 Systemic lupus erythematosus, unspecified (principal); E44.0 Moderate protein-calorie malnutrition; E87.1 Hypo-osmolality and hyponatremia; N39.0 Urinary tract infection, site not specified; F12.10 Cannabis abuse, uncomplicated; E87.6 Hypokalemia; M06.9 Rheumatoid arthritis, unspecified; Z91.14 Patient's other noncompliance with medication regimen; Z88.0 Allergy status to penicillin; Z68.1 Body mass index [BMI] 19.9 or less, adult
CPT/HCPCS: 36415; 70450; 71020; 80053; 80305; 81001; 81025; 82150; 82306; 83605; 83690; 83735; 84484; 84703; 85025; 85651; 86140; 87081; 87086; 87186; 93005; 96361; 96365; 96375; 99285; J0696; J1650; J2930; J7030; J7060

== ENCOUNTER 2019-02-03 11:41 | Emergency (ER) | payer OTHER ==
[~2019-02-03] VITALS: Ht 170.2 cm; Wt 52.2 kg
[~2019-02-03 11:41] MED LIST changes: -CIPR500T4 PO; -METR250T2 PO; -PRED10TA5 PO; +PRED20TA6 PO
[2019-02-03 12:01] VITALS: BP 114/77
--- NOTE | 2019-02-03 12:06 | NUR ---
PT AMB TO BED 8 WITH STEADY GAIT
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
[2019-02-03] MEDS ORDERED: BACITRACIN OINT 500 UNITS/GM PKT TP ONE (12:35)
--- NOTE | 2019-02-03 12:49 | NUR ---
PT REFUSED TDAP, SAYING IT IS AGAINST HER PENTECOSTALISM. ALSO REFUSED WOUND CARE.
--- NOTE | 2019-02-03 12:55 | NUR ---
PT REFUSED TO FILL OUT ANY INFO ON DOG BITE. ER MD NOTIFED
[2019-02-03] MEDS ORDERED: NEOMYCIN/POLYMYXIN/BACITRACIN 0.9 GM/1 PKT TP ONE (12:57)
[2019-02-03 13:06] VITALS: BP 111/75
--- NOTE | 2019-02-03 13:07 | NUR ---
Patient discharged with v/s stable. Written and verbal after care instructions given and explained. Patient alert, oriented and verbalized understanding of instructions. Ambulatory with steady gait. All questions addressed prior to discharge. ID band removed. Patient advised to follow up with PMD. Rx of NAPROSYN, DOXYCYCLINE given. Patient educated on indication of medication including possible reaction and side effects. Opportunity to ask questions provided and answered.
== END 2019-02-03 13:07 | disposition home or self-care (01) ==
LOC: MED 11:41
DX: S81.851A Open bite, right lower leg, initial encounter (principal); Z88.0 Allergy status to penicillin; Z79.899 Other long term (current) drug therapy; W54.0XXA Bitten by dog, initial encounter; Y93.89 Activity, other specified; Y92.89 Other specified places as the place of occurrence of the external cause; Y99.8 Other external cause status
CPT/HCPCS: 90715; 99283

== ENCOUNTER 2019-05-15 08:21 | Emergency (ER) | payer OTHER ==
[~2019-05-15] VITALS: Ht 170.2 cm; Wt 50.3 kg
[2019-05-15 08:35] VITALS: BP 116/78
--- NOTE | 2019-05-15 08:38 | NUR ---
Patient transferred to bed 1 via wheelchair by tech. RN evaluating patient at bedside.
[2019-05-15] MEDS ORDERED: IBUPROFEN 600 MG TAB PO ONE (08:45)
[2019-05-15] MEDS ORDERED: ACETAMINOPHEN 325 MG TAB PO ONE (08:45)
[2019-05-15] MEDS ORDERED: NACL 0.9% 2,000 ML IV SCH (09:00)
[2019-05-15] MEDS ORDERED: DEXAMETHASONE 10 MG/ML VIAL IVP ONE (09:00)
[2019-05-15] MEDS ORDERED: KETOROLAC 30 MG/ML VIAL IVP ONE (09:00)
[2019-05-15] MEDS ORDERED: diphenhydrAMINE 50 MG/ML VIAL IVP ONE (09:00)
--- NOTE | 2019-05-15 09:09 | NUR ---
xray at bedside
--- NOTE | 2019-05-15 09:16 | NUR ---
28/F BIB MOTHER C/O SUDDEN ONSET FEVER, CHILLS, N/V, BODY ACHES, ARTHRALGIA X 2 DAYS. HAS BEEN UNABLE TO WALK TO BATHROOM DUE TO ARTHRALGIA. PT HAS SORE THROAT PAIN AND NASAL CONGESTION WELL. TEMP 102.0 AT THIS TIME. AOX4. IN MODERATE DISTRESS 2/2 PAIN. HX: LUPUS, OSTEOARTHRITIS RX: NONE AT THIS TIME.
[2019-05-15 09:40] LABS: BASOPHILS % (AUTO) 0.1 % (0.0-2.0); HEMATOCRIT 25.3 % (36-48); HEMOGLOBIN 7.6 g/dL (12.0-16.0); LYMPHOCYTES # (AUTO) 0.2 K/uL (2.5-16.5); LYMPHOCYTES % (AUTO) 1.6 % (20.5-51.1); MEAN CORPUSCULAR HEMOGLOBIN 19 pg (27-31); MEAN CORPUSCULAR HGB CONC 30 g/dL (33-37); MEAN CORPUSCULAR VOLUME 63.4 fL (80-94); MONOCYTES # (AUTO) 0.2 K/uL (0.8-1.0); MONOCYTES % (AUTO) 1.6 % (1.7-9.3); NEUTROPHILS # (AUTO) 12.5 K/uL (1.8-7.7); NEUTROPHILS % (AUTO) 96.7 % (42.2-75.2); PLATELET COUNT (AUTO) 436 K/uL (140-450); RED BLOOD CELL COUNT(AUTO) 3.99 MIL/uL (4.20-5.40)
--- NOTE | 2019-05-15 09:45 | NUR ---
temp now 98.1 oral
--- NOTE | 2019-05-15 09:45 | NUR ---
pt wants family member to help her with bedpan. bedpan given to family member at bedside and explained how to use.
[2019-05-15 09:51] LABS: ACETONE, SERUM NEGATIVE (NEGATIVE)
[2019-05-15 09:53] LABS: C-REACTIVE PROTEIN QUANT 5.5 mg/dL (0.0-0.9)
[2019-05-15 09:54] LABS: ANION GAP 16.2 (8-16); CARBON DIOXIDE 23.4 mmol/L (21-32); CREATININE 0.6 mg/dL (0.6-1.3); POTASSIUM 3.6 mmol/L (3.5-5.1)
[2019-05-15 09:59] LABS: ALBUMIN 3.2 g/dL (3.4-5.0); TOTAL BILIRUBIN 0.5 mg/dL (0.0-1.0)
[2019-05-15 10:00] LABS: MAGNESIUM 1.4 mg/dL (1.8-2.4)
--- NOTE | 2019-05-15 10:03 | NUR ---
PT STATES UNABLE TO PROVIDE URINE SAMPLE YET BUT WILL TRY LATER.
[2019-05-15] MEDS ORDERED: MAG SULF 2000 MG/WATER PREMIX 50 ML IV ONE (10:20)
[2019-05-15] MEDS ORDERED: CLINDAMYCIN 900 MG in DEXTROSE 5% 100 ML IV ONE (10:20)
[2019-05-15] MEDS ORDERED: MORPHINE SULFATE 4 MG/ML SYR IVP ONE (10:20)
--- NOTE | 2019-05-15 10:30 | NUR ---
CALLED AND ASKED PHARMACY TO BRING ORDERED CLEOCIN.
[2019-05-15 10:58] LABS: APPEARANCE,URINE CLEAR (CLEAR); BILIRUBIN,URINE NEGATIVE (NEGATIVE); BLOOD, URINE NEGATIVE (NEGATIVE); COLOR,URINE YELLOW (YELLOW); LEUKOCYTE ESTERASE ,URINE NEGATIVE (NEGATIVE); NITRITE, URINE NEGATIVE (NEGATIVE); UGLUCOSE NEGATIVE (NEGATIVE)
[2019-05-15 11:04] LABS: BARBITURATE, URINE NEG. ng/ml (NEG <=200); BENZODIAZEPINE, URINE NEG. ng/mL (NEG <=200); CANNABINOID, URINE POS. ng/mL (NEG <=50); COCAINE, URINE NEG. ng/mL (NEG <=300); OPIATE, URINE POS. ng/mL (NEG <=2000); PHENCYCLIDINE SCREEN,URINE NEG. ng/mL (NEG <=25)
--- NOTE | 2019-05-15 11:07 | NUR ---
CALLED PHARMACY AGAIN REGARDING CLEOCLIN--[facility] STATES HE WILL BRING IT NOW.
--- NOTE | 2019-05-15 11:25 | NUR ---
PAUSED MAG SULFATE, ADMINISTERED CLEOCIN THRU RT FA IV SITE.
--- NOTE | 2019-05-15 12:03 | NUR ---
CLEOCIN STILL INFUSING
[2019-05-15 12:07] VITALS: BP 106/74
--- NOTE | 2019-05-15 13:24 | NUR ---
PT UNHAPPY WITH PRESCRIBED PAIN MED. DEMANDING TO SPEAK WITH . DR. VAUGHN NOTIFIED AND WILL SPEAK WITH PT.
--- NOTE | 2019-05-15 13:28 | NUR ---
DR. VAUGHN SPEAKING WITH PT ABOUT D/C RX.
--- NOTE | 2019-05-15 13:45 | NUR ---
Patient discharged with v/s stable. Written and verbal after care instructions given and explained. Patient alert, oriented and verbalized understanding of instructions. Wheel Chair Assisted with by parent. All questions addressed prior to discharge. ID band removed. Patient advised to follow up with PMD. Rx of PREDNISONE, TRAMADOL, AND VOLTAREN given. Patient educated on indication of medication including possible reaction and side effects. Opportunity to ask questions provided and answered.
--- NOTE | 2019-05-30 13:37 | NUR ---
Late entry. Confirmed with RN that 0.9 NS IV completed at 1030
--- NOTE | 2019-06-03 11:23 | NUR ---
Late entry. Confirmed with RN that Mag IV completed at 1230 and Clindamycin at 1215
== END 2019-05-15 13:45 | disposition home or self-care (01) ==
LOC: MED 08:21
DX: M32.8 Other forms of systemic lupus erythematosus (principal); M25.50 Pain in unspecified joint; F12.90 Cannabis use, unspecified, uncomplicated; Z88.0 Allergy status to penicillin; Z79.899 Other long term (current) drug therapy
CPT/HCPCS: 36415; 71045; 80053; 80305; 81003; 81025; 82009; 83605; 83735; 83880; 85025; 85651; 86140; 87040; 87086; 87804; 96365; 96366; 96368; 96375; 99284; J1100; J1200; J1885; J2270; J3475; J3490; J7030; J7060; Q0092; 96374

== ENCOUNTER 2019-10-12 12:03 | Emergency (ER) | payer OTHER, SELFPAY ==
[~2019-10-12] VITALS: Ht 157.5 cm; Wt 47.2 kg
[2019-10-12 12:08] VITALS: BP 110/77
--- NOTE | 2019-10-12 12:23 | NUR ---
RECEVIED A 29/F FROM EMS/[facility] FOR C/O FEVER AND NASUEA/VOMITTING. PT STATES "I HAVE LUPUS SO EVERYTHING FOR ME IS WORSE". PT FOUND IN BED SHIVERING, AND C/O CHILLS. NO ACTIVE VOMITTING NOTED. IN BED FOR MSE. NO APPARENT DISTRESS NOTED.
--- NOTE | 2019-10-12 12:26 | NUR ---
URINE CUP PROVIDED -- ENCOURAGED TO VOID.
[2019-10-12] MEDS ORDERED: KETOROLAC 30 MG/ML VIAL IVP ONE (12:35)
[2019-10-12] MEDS ORDERED: NACL 0.9% 1,000 ML IV ONE (12:35)
--- NOTE | 2019-10-12 13:52 | NUR ---
[facility] ([facility] [place]) [phone]
[2019-10-12 14:09] VITALS: BP 106/51
== END 2019-10-12 14:09 | disposition home or self-care (01) ==
LOC: MED 12:03 → EEVIPCON 12:03 → MED 14:09
DX: R50.9 Fever, unspecified (principal); R05 Cough; M79.10 Myalgia, unspecified site; Z79.899 Other long term (current) drug therapy; Z88.0 Allergy status to penicillin
CPT/HCPCS: 71045; 81002; 81025; 96374; 99283; J1885; Q0092; J7030

== ENCOUNTER 2023-07-19 06:53 | Emergency (ER) | payer OTHER ==
[~2023-07-19] VITALS: Ht 170.2 cm; Wt 63.5 kg
[2023-07-19 07:02] VITALS: BP 123/74; PULSE 78; RESP 16; TEMP 97.5
[2023-07-19] MEDS ORDERED: ACETAMINOPHEN EXTRA STRENGTH 500 MG TAB ONE (07:32)
[2023-07-19] MEDS: ACETAMINOPHEN EXTRA STRENGTH 500 MG TAB PO ONE (07:34)
[2023-07-19] MEDS ORDERED: ACET-10509 PO (07:35)
== END 2023-07-19 07:58 | disposition home or self-care (01) ==
LOC: MED 06:53
DX: S63.501A Unspecified sprain of right wrist, initial encounter (principal); Z79.899 Other long term (current) drug therapy; Z88.0 Allergy status to penicillin; X50.1XXA Overexertion from prolonged static or awkward postures, initial encounter; Y93.89 Activity, other specified; Y92.89 Other specified places as the place of occurrence of the external cause; Y99.8 Other external cause status
CPT/HCPCS: 73100; 99283

== ENCOUNTER 2023-12-15 06:58 | Emergency (ER) | payer OTHER ==
[~2023-12-15] VITALS: Ht 170.2 cm; Wt 63.5 kg
[~2023-12-15 06:58] MED LIST changes: +ACET-10509 PO
[2023-12-15 07:00] VITALS: BP 121/95; PULSE 83; RESP 20; TEMP 97.4; O2SAT 100
[2023-12-15 07:43] LABS: APPEARANCE,URINE CLOUDY (CLEAR); BILIRUBIN,URINE NEGATIVE (NEGATIVE); BLOOD, URINE 3+ (NEGATIVE); LEUKOCYTE ESTERASE ,URINE 2+ (NEGATIVE); NITRITE, URINE NEGATIVE (NEGATIVE); PROTEIN,URINE 2+ (NEGATIVE); UGLUCOSE NEGATIVE (NEGATIVE); UROBILINOGEN,URINE 0.2 EU/dL (0.2 - 1)
[2023-12-15 07:47] LABS: COLOR,URINE AMBER (YELLOW)
[2023-12-15 07:55] LABS: BACTERIA,URINE 10-30 (MOD) /HPF (None Seen); RBC,URINE 20-50 /HPF (0-5); SQUAMOUS EPITHELIAL CELL,UR 0-3 (FEW) /LPF (0-3 (FEW)); WBC,URINE 16-25 (MOD) /HPF (0-5)
[2023-12-15] MEDS ORDERED: PYR100 PO (08:33)
[2023-12-15] MEDS ORDERED: LEVO250T89 PO (08:33)
[2023-12-15 08:36] VITALS: O2SAT 100
[2023-12-15 08:55] VITALS: BP 124/75; PULSE 61; RESP 20; TEMP 97.9
== END 2023-12-15 08:39 | disposition home or self-care (01) ==
LOC: MED 06:58
DX: N39.0 Urinary tract infection, site not specified (principal); R03.0 Elevated blood-pressure reading, without diagnosis of hypertension; Z79.1 Long term (current) use of non-steroidal anti-inflammatories (NSAID); Z79.2 Long term (current) use of antibiotics; Z79.899 Other long term (current) drug therapy; Z88.0 Allergy status to penicillin
CPT/HCPCS: 81001; 81025; 87086; 87186; 99283